=== PATIENT | male | born 1990 | race Two or more races ===

== ENCOUNTER 2018-02-11 11:40 | Emergency (ER) | payer MEDICAID ==
[~2018-02-11] VITALS: Ht 170.2 cm; Wt 74.8 kg
[2018-02-11 11:43] VITALS: BP 140/97
--- NOTE | 2018-02-11 12:10 | NUR ---
TOOK URINE SAMPLE TO THE STAT LAB.
[2018-02-11 12:30] LABS: APPEARANCE,URINE Clear (CLEAR); BILIRUBIN,URINE Negative (NEGATIVE); BLOOD, URINE Trace-intact Ery/uL (NEGATIVE); COLOR,URINE Yellow (YELLOW); KETONES,URINE Negative (NEGATIVE); LEUKOCYTE ESTERASE ,URINE Negative (NEGATIVE); NITRITE, URINE Negative (NEGATIVE); PH,URINE 6.5 (5.0-8.0); PROTEIN,URINE Negative (NEGATIVE); UGLUCOSE Negative (NEGATIVE); UROBILINOGEN,URINE 0.2 EU/dL (0.2)
[2018-02-11 12:40] LABS: BACTERIA,URINE Rare /HPF (None Seen); SQUAMOUS EPITHELIAL CELL,UR Few /HPF (None Seen); WBC,URINE 0-2 /HPF (0-3)
== END 2018-02-11 12:45 | disposition home or self-care (01) ==
LOC: ER 11:46
DX: N39.0 Urinary tract infection, site not specified (principal); R31.9 Hematuria, unspecified
CPT/HCPCS: 81000-TC; A4606; Z7610

== ENCOUNTER 2018-04-09 15:12 | Emergency (ER) | payer MEDICAID ==
[~2018-04-09] VITALS: Ht 170.2 cm; Wt 74.8 kg
[2018-04-09] MEDS ORDERED: diphenhydrAMINE HCL 50 MG CAPSULE ONE (16:10)
[2018-04-09] MEDS ORDERED: predniSONE 20 MG TABLET ONE (16:10)
[2018-04-09] MEDS ORDERED: FAMOTIDINE (20 MG) 20 MG TABLET ONE (16:10)
[2018-04-09] MEDS: FAMOTIDINE (20 MG) 20 MG TABLET PO ONE (16:18)
[2018-04-09] MEDS: predniSONE 10 MG TABLET PO ONE (16:18)
--- NOTE | 2018-04-09 16:19 | NUR ---
PT CAME TO ED C/O PURITIC SPOTS ON ARM X1 WK
--- NOTE | 2018-04-09 16:20 | NUR ---
PT STABLE DENIES SOB, DIZZINESS, NAD NOTED @ THIS TIME.
[2018-04-09] MEDS: diphenhydrAMINE HCL 50 MG CAPSULE PO ONE (16:25)
[2018-04-09 16:34] LABS: HEMATOCRIT 47 % (39-51); HEMOGLOBIN 17.2 g/dL (13.5-17.5); MEAN CORPUSCULAR HEMOGLOBIN 32 PG (26.0-33.0); MEAN CORPUSCULAR HGB CONC 37 g/dl (31.0-36.0); MEAN CORPUSCULAR VOLUME 87 fL (80-96); PLATELET COUNT (AUTO) 226 /CMM (150-450); RDW COEFFICIENT OF VARIATION 11.8 (11.5-15.0); RED BLOOD CELL COUNT(AUTO) 5.45 MIL/uL (4.5-6.0); WHITE BLOOD COUNT (AUTO) 8.6 K/uL (4.3-11.0)
[2018-04-09 16:35] LABS: BASOPHILS # (AUTO) 0.1 /CMM (0.0-0.2); BASOPHILS % (AUTO) 1.1 % (0.0-2.0); EOSINOPHILS % (AUTO) 1.6 % (0.0-6.0); LYMPHOCYTES # (AUTO) 3.2 /CMM (0.8-4.8); LYMPHOCYTES % (AUTO) 37.3 % (20.0-44.0); MONOCYTES # (AUTO) 0.5 /CMM (0.1-1.30); MONOCYTES % (AUTO) 5.9 % (2.0-12.0); NEUTROPHILS # (AUTO) 4.7 /CMM (1.8-8.9); NEUTROPHILS % (AUTO) 54.1 % (43.0-81.0)
[2018-04-09 16:42] LABS: CALCIUM, SERUM 8.6 mg/dL (8.5-10.1); INR 0.95 (0.85-1.15); POTASSIUM 3.8 mmol/L (3.5-5.1)
--- NOTE | 2018-04-09 17:07 | NUR ---
Patient discharged to home in stable condition. Written and verbal after care instructions given. Patient verbalizes understanding of instruction.
[2018-04-09 17:08] VITALS: BP 128/76
== END 2018-04-09 17:09 | disposition home or self-care (01) ==
LOC: ER 15:13
DX: L50.9 Urticaria, unspecified (principal)
CPT/HCPCS: 36415; 80048-TC; 85025-TC; 85610-TC; A4606; Q0163; Z7610

== ENCOUNTER 2018-09-07 16:07 | Emergency (ER) | payer MEDICAID ==
[~2018-09-07] VITALS: Ht 175.3 cm; Wt 80.3 kg
[2018-09-07 16:11] VITALS: BP 125/76
[2018-09-07] MEDS ORDERED: METHOCARBAMOL (500MG) 500 MG TABLET PO ONE (17:00)
[2018-09-07] MEDS ORDERED: IBUPROFEN 400 MG TABLET PO ONE (17:00)
[2018-09-07] MEDS ORDERED: IBUPROFEN 400 MG TABLET ONE (17:10)
[2018-09-07] MEDS ORDERED: METHOCARBAMOL (500MG) 500 MG TABLET ONE (17:10)
== END 2018-09-07 18:24 | disposition home or self-care (01) ==
LOC: ER 16:17
DX: M54.16 Radiculopathy, lumbar region (principal); K58.9 Irritable bowel syndrome, unspecified
CPT/HCPCS: 72131-TC; A4606; Z7610

== ENCOUNTER 2018-10-01 17:34 | Emergency (ER) | payer MEDICAID ==
[~2018-10-01] VITALS: Ht 170.2 cm; Wt 81.6 kg
--- NOTE | 2018-10-01 17:35 | NUR ---
PT BIBSELF RT SIDED ABD PAIN, ON AND OFF X FEW WEEKS, REPORTS GREENISH COLORED STOOL. PT AAOX4, RESPIRATIONS EVEN AND UNLABORED, NO SOB, DENIES PAIN/DISCOMFRT AT THIS TIME, NAD NOTED, VSS, PENDING ER PROVIDER EVAL
[2018-10-01] MEDS ORDERED: IV NS 0.9% 1,000 ML BAG IV ONE (18:00)
[2018-10-01] MEDS ORDERED: ONDANSETRON HCL/PF 4 MG/2 ML VIAL IVP ONE (18:00)
[2018-10-01] MEDS ORDERED: ONDANSETRON HCL/PF 4 MG/2 ML VIAL ONE (18:10)
[2018-10-01 18:40] LABS: APPEARANCE,URINE Clear (CLEAR); BILIRUBIN,URINE Negative (NEGATIVE); BLOOD, URINE Negative Ery/uL (NEGATIVE); COLOR,URINE Yellow (YELLOW); KETONES,URINE Negative (NEGATIVE); LEUKOCYTE ESTERASE ,URINE Negative (NEGATIVE); NITRITE, URINE Negative (NEGATIVE); PH,URINE 5.5 (5.0-8.0); PROTEIN,URINE Negative (NEGATIVE); UGLUCOSE Negative (NEGATIVE); UROBILINOGEN,URINE 0.2 EU/dL (0.2)
[2018-10-01 18:45] LABS: BASOPHILS # (AUTO) 0.1 /CMM (0.0-0.2); BASOPHILS % (AUTO) 0.6 % (0.0-2.0); EOSINOPHILS % (AUTO) 2.1 % (0.0-6.0); HEMATOCRIT 50 % (39-51); HEMOGLOBIN 17.6 g/dL (13.5-17.5); LYMPHOCYTES # (AUTO) 3.3 /CMM (0.8-4.8); LYMPHOCYTES % (AUTO) 37.7 % (20.0-44.0); MEAN CORPUSCULAR HGB CONC 36 g/dl (31.0-36.0); MEAN CORPUSCULAR VOLUME 88 fL (80-96); MONOCYTES # (AUTO) 0.7 /CMM (0.1-1.30); MONOCYTES % (AUTO) 8.3 % (2.0-12.0); NEUTROPHILS # (AUTO) 4.5 /CMM (1.8-8.9); NEUTROPHILS % (AUTO) 51.3 % (43.0-81.0); PLATELET COUNT (AUTO) 225 /CMM (150-450); RED BLOOD CELL COUNT(AUTO) 5.63 MIL/uL (4.5-6.0); WHITE BLOOD COUNT (AUTO) 8.7 K/uL (4.3-11.0)
[2018-10-01 19:05] LABS: CREATININE 0.9 mg/dL (0.6-1.3); POTASSIUM 3.9 mmol/L (3.5-5.1)
[2018-10-01 19:09] LABS: ALBUMIN 3.8 g/dL (3.4-5.0); BILIRUBIN,TOTAL 0.6 mg/dL (0.2-1.0); TOTAL PROTEIN, SERUM 6.8 g/dL (6.4-8.2)
--- NOTE | 2018-10-01 19:30 | NUR ---
Patient discharged to home in stable condition. Written and verbal after care instructions given. Patient verbalizes understanding of instruction.IV removed. Catheter intact and site benign. Pressure and 4x4 applied to site. No bleeding noted.
[2018-10-01 19:31] VITALS: BP 139/80
== END 2018-10-01 19:31 | disposition home or self-care (01) ==
LOC: ER 17:40
DX: R10.11 Right upper quadrant pain (principal); R10.31 Right lower quadrant pain; R11.2 Nausea with vomiting, unspecified; R19.7 Diarrhea, unspecified; K58.9 Irritable bowel syndrome, unspecified
CPT/HCPCS: 36415; 80048; 80076; 81001; 83690; 85025; 96361; 96374; 99283; A4606; J2405; J7030; Z7610; 81000-TC

== ENCOUNTER 2018-10-13 16:19 | Emergency (ER) | payer MEDICAID ==
[~2018-10-13] VITALS: Ht 171.4 cm; Wt 78.0 kg
[2018-10-13 16:29] VITALS: BP 127/76
--- NOTE | 2018-10-13 16:41 | NUR ---
URINE COLLECTED AND SENT TO THE LAB.
[2018-10-13 17:15] LABS: BILIRUBIN,URINE Negative (NEGATIVE); BLOOD, URINE Moderate Ery/uL (NEGATIVE); COLOR,URINE Yellow (YELLOW); KETONES,URINE Negative (NEGATIVE); LEUKOCYTE ESTERASE ,URINE Trace (NEGATIVE); NITRITE, URINE Negative (NEGATIVE); PROTEIN,URINE Negative (NEGATIVE); UGLUCOSE Negative (NEGATIVE); UROBILINOGEN,URINE 0.2 EU/dL (0.2)
[2018-10-13 17:17] LABS: APPEARANCE,URINE SLIGHTLY HAZY (CLEAR)
[2018-10-13] MEDS ORDERED: CEFTRIAXONE 500 MG VIAL ONE (17:19)
[2018-10-13] MEDS ORDERED: AZITHROMYCIN 250 MG TABLET ONE (17:19)
[2018-10-13 17:22] LABS: BACTERIA,URINE Few /HPF (None Seen)
[2018-10-13 17:23] LABS: SQUAMOUS EPITHELIAL CELL,UR Few /HPF (None Seen)
[2018-10-13] MEDS ORDERED: AZITHROMYCIN 250 MG TABLET PO ONE (17:30)
[2018-10-13] MEDS ORDERED: CEFTRIAXONE 500 MG VIAL IM ONE (17:30)
--- NOTE | 2018-10-13 18:25 | NUR ---
Patient discharged to home in stable condition. Written and verbal after care instructions given. Patient verbalizes understanding of instruction.
== END 2018-10-13 18:25 | disposition home or self-care (01) ==
LOC: ER 16:21
DX: N48.1 Balanitis (principal); N39.0 Urinary tract infection, site not specified; H10.9 Unspecified conjunctivitis; A64 Unspecified sexually transmitted disease
CPT/HCPCS: 81001; 87086; 87491; 87591; 96372; 99283; A4606; J0696; Z7610; 81000-TC